=== PATIENT | male | born 1970 | race Caucasian/White ===

== ENCOUNTER 2017-04-23 20:53 | Emergency (ER) | payer BC, SELFPAY ==
[2017-04-23 20:54] VITALS: BP 136/83; PULSE 66; RESP 18; TEMP 36.6; O2SAT 99; BMI 24.0
--- NOTE | 2017-04-23 21:05 | XR_ITS ---
XR chest 2V HISTORY: ITS.REASON: chest pain ORDERING PHYSICIAN: Jose Guadalupe Coronado MD PATIENT AGE: 47 years COMPARISON: None available FINDINGS: The cardiomediastinal silhouette and pulmonary vascularity are within normal limits. The lungs are clear without infiltrates, suspicious nodules, or pleural effusions. No acute bony abnormalities. IMPRESSION: Negative chest, no acute finding
--- NOTE | 2017-04-23 21:07 | [facility].EDCP ---
ED Disposition Clinical Impression: Chest pain Qualifiers: Chest pain type: unspecified Qualified Code(s): R07.9 - Chest pain, unspecified Disposition: Home, Self-Care Condition on Discharge: Good Instructions: DI for Atypical Chest Pain Additional Instructions: call pcp for follow up and recheck if any problems - Critical Care Critical Care Time: No Attestation: On , the high probability of a clinically significant, sudden or life threatening deterioration of the following system(s) required my full and direct attention, intervention and personal management. The time I documented below is in addition to time spent performing reported procedures but includes the following listed in this critical care notation. Medical Decision Making - Medical Records Medical records reviewed: Yes: I reviewed the patient's medical records. Vital Signs: 04/23/17 20:54 Temperature 97.8 F Temperature Source Oral Pulse Rate [Left Radial] 66 Respiratory Rate 18 Blood Pressure [Right Arm] 136/83 Blood Pressure Mean [Right Arm] 100 Blood Pressure Source [Right Arm] Automatic Cuff Blood Pressure Position [Right Arm] Sitting 02 Sat by Pulse Oximetry 99 Oxygen Delivery Method Room Air - Lab Data Lab results reviewed: Yes: I reviewed the patient's lab results. Lab Results 04/23/17 21:00: WBC 9.6, RBC 4.62, Hgb 14.5, Hct 44.5, MCV 96.5 H, MCH 31.5 H, MCHC 32.6, RDW 13.0, Plt Count 236, MPV 7.9, Neut % (Auto) 62.9, Lymph % (Auto) 28.0, Blount % (Auto) 5.3, Eos % (Auto) 3.1, Baso % (Auto) 0.7, Neut # (Auto) 6.1, Lymph # (Auto) 2.7, Blount # (Auto) 0.5, Eos # (Auto) 0.3, Baso # (Auto) 0.1 04/23/17 21:00: Sodium 141, Potassium 3.9, Chloride 105, Carbon Dioxide 29, Anion Gap 10.9, BUN 13, Creatinine 1.06, Estimated Creat Clear 77, Estimated GFR 75, Est GFR ( Amer) 90, Glucose 81, Calcium 8.9, Total Bilirubin 0.3, AST 10 L, ALT 28, Alkaline Phosphatase 95, Total Creatine Kinase 59, CK-MB (CK-2) 0.5, CK-MB (CK-2) Rel Index 0.8, Troponin I < 0.02, Total Protein 6.7, Albumin 3.8, Globulin 2.9, Albumin/Globulin Ratio 1.3 Result diagrams: 04/23/17 21:00 04/23/17 21:00 Orders (Tests/Meds): ED MEDICATIONS Discontinued Medications Generic Name Dose Route Start Last Admin Trade Name Poly PRN Reason Stop Dose Admin Aspirin 324 mg 04/23/17 21:06 04/23/17 21:10 Aspirin 81mg Enteric Coated Tablet PO 04/23/17 21:07 324 mg ONCE ONE Administration Famotidine 20 mg 04/23/17 21:09 04/23/17 21:13 Pepcid 20mg/2ml Vial IV 04/23/17 21:10 20 mg ONCE ONE Administration Metoclopramide HCl 10 mg 04/23/17 21:09 04/23/17 21:13 Reglan 10mg/2ml Vial IVP 04/23/17 21:10 10 mg ONCE ONE Administration ORDERS Category Date Time Status XR chest 2V Stat Exams 04/23/17 21:05 Taken - Radiology Data #1 Image(s): Chest Image Reviewed: Yes I reviewed the patient's radiology image Preliminary Findings: Normal/NAD - ECG Data Tracing #1 I reviewed this ECG and interpreted as documented below: Ischemic changes: non-specific ST-T wave changes - Luis Eduardo Inquiry Pt receiving controlled substance: No Chest Pain HPI - General Chief Complaint: Chest Pain Stated Complaint: CHEST PAIN Time Seen by Provider: 04/23/17 21:07 Mode of Arrival: Ambulatory Source of Information: Patient, Spouse, Medical Record Limitations: No Limitations Description of Symptoms (Recalled from ER Triage Doc. by RN): Pt. reports substernal chest pain and says it feels like his chest is caving in. - History of Present Illness HPI narrative: pt with acute epigastic to mis line chest pain and rad to back - started tonight - no known ht dis and occ gerd MD complaint: chest pain Onset (ago): day(s) Duration: now resolved Severity: moderate Quality: other (burning ) Pain radiation: back Relieving factors: nothing Exacerbating factors: nothing Risk Factors for CAD: Family Hx of CAD, Smoking - VIKTOR Score Non-Stemi Age o
--- NOTE | 2017-04-23 21:10 | ED_ITS ---
ED Disposition Clinical Impression: Chest pain Qualifiers: Chest pain type: unspecified Qualified Code(s): R07.9 - Chest pain, unspecified Disposition: Home, Self-Care Condition on Discharge: Good Instructions: DI for Atypical Chest Pain Additional Instructions: call pcp for follow up and recheck if any problems - Critical Care Critical Care Time: No Attestation: On , the high probability of a clinically significant, sudden or life threatening deterioration of the following system(s) required my full and direct attention, intervention and personal management. The time I documented below is in addition to time spent performing reported procedures but includes the following listed in this critical care notation. Medical Decision Making - Medical Records Medical records reviewed: Yes: I reviewed the patient's medical records. Vital Signs: 04/23/17 20:54 Temperature 97.8 F Temperature Source Oral Pulse Rate [Left Radial] 66 Respiratory Rate 18 Blood Pressure [Right Arm] 136/83 Blood Pressure Mean [Right Arm] 100 Blood Pressure Source [Right Arm] Automatic Cuff Blood Pressure Position [Right Arm] Sitting 02 Sat by Pulse Oximetry 99 Oxygen Delivery Method Room Air - Lab Data Lab results reviewed: Yes: I reviewed the patient's lab results. Lab Results 04/23/17 21:00: WBC 9.6, RBC 4.62, Hgb 14.5, Hct 44.5, MCV 96.5 H, MCH 31.5 H, MCHC 32.6, RDW 13.0, Plt Count 236, MPV 7.9, Neut % (Auto) 62.9, Lymph % (Auto) 28.0, Davison % (Auto) 5.3, Eos % (Auto) 3.1, Baso % (Auto) 0.7, Neut # (Auto) 6.1 , Lymph # (Auto) 2.7, Davison # (Auto) 0.5, Eos # (Auto) 0.3, Baso # (Auto) 0.1 04/23/17 21:00: Sodium 141, Potassium 3.9, Chloride 105, Carbon Dioxide 29, Anion Gap 10.9, BUN 13, Creatinine 1.06, Estimated Creat Clear 77, Estimated GFR 75, Est GFR ( Amer) 90, Glucose 81, Calcium 8.9, Total Bilirubin 0.3 , AST 10 L, ALT 28, Alkaline Phosphatase 95, Total Creatine Kinase 59, CK-MB (CK -2) 0.5, CK-MB (CK-2) Rel Index 0.8, Troponin I < 0.02, Total Protein 6.7, Albumin 3.8, Globulin 2.9, Albumin/Globulin Ratio 1.3 Result diagrams: 04/23/17 21:00 04/23/17 21:00 Orders (Tests/Meds): ED MEDICATIONS Discontinued Medications Generic Name Dose Route Start Last Admin Trade Name Poly PRN Reason Stop Dose Admin Aspirin 324 mg 04/23/17 21:06 04/23/17 21:10 Aspirin 81mg Enteric Coated Tablet PO 04/23/17 21:07 324 mg ONCE ONE Administration Famotidine 20 mg 04/23/17 21:09 04/23/17 21:13 Pepcid 20mg/2ml Vial IV 04/23/17 21:10 20 mg ONCE ONE Administration Metoclopramide HCl 10 mg 04/23/17 21:09 04/23/17 21:13 Reglan 10mg/2ml Vial IVP 04/23/17 21:10 10 mg ONCE ONE Administration ORDERS Category Date Time Status XR chest 2V Stat Exams 04/23/17 21:05 Taken - Radiology Data #1 Image(s): Chest Image Reviewed: Yes I reviewed the patient's radiology image Preliminary Findings: Normal/NAD - ECG Data Tracing #1 I reviewed this ECG and interpreted as documented below: Ischemic changes: non-specific ST-T wave changes - Luis Eduardo Inquiry Pt receiving controlled substance: No Chest Pain HPI - General Chief Complaint: Chest Pain Stated Complaint: CHEST PAIN Time Seen by Provider: 04/23/17 21:07 Mode of Arrival: Ambulatory Source of
[2017-04-23 21:19] LABS: Basophils # 0.1 K/mm3 (0-0.2); Basophils % 0.7 % (0.1-2.0); Eosinophils # 0.3 K/mm3 (0.0-0.4); Eosinophils % 3.1 % (0.1-12.0); Hematocrit 44.5 % (42.0-52.0); Hemoglobin 14.5 g/dL (14.1-18.0); Lymphocytes # 2.7 K/mm3 (0.7-4.5); Mean Corpuscular HGB Conc 32.6 g/dL (31.8-35.4); Mean Corpuscular Hemoglobin 31.5 pg (27.0-31.2); Mean Corpuscular Volume 96.5 fl (80-94); Mean Platelet Volume 7.9 fl (7.4-10.4); Monocytes # 0.5 K/mm3 (0.1-1.0); Monocytes % 5.3 % (1.7-9.3); Neutrophils # 6.1 K/mm3 (1.8-7.8); Neutrophils % 62.9 % (37.0-80.0); Platelet Count 236 K/mm3 (142-424); Red Blood Count 4.62 M/mm3 (4.60-6.20); White Blood Count 9.6 K/mm3 (4.8-10.8)
[2017-04-23 21:39] LABS: Alanine Aminotransferase 28 U/L (12-78); Albumin Level 3.8 gm/dL (3.4-5.0); Anion Gap 10.9 mEq/L (5-15); Aspartate Amino Transferase 10 U/L (15-37); Bilirubin,Total 0.3 mg/dL (0.2-1.0); Blood Urea Nitrogen 13 mg/dL (7-18); CKMB Relative Index 0.8 U/L (0-4.0); Calcium 8.9 mg/dL (8.5-10.1); Carbon Dioxide 29 mmol/L (21.0-32.0); Chloride 105 mmol/L (98-107); Creatine Kinase 59 U/L (39-308); Creatine Kinase MB 0.5 mg/ml (0.0-3.6); Creatinine Clearance Estimated 77 mL/min (0-300); Creatinine,Serum 1.06 mg/dL (0.70-1.30); Estimated Glomerular Filt Rate 75 ml/min (>60); GFR (African American) 90 ML/MIN (>60); Glucose 81 mg/dL (74-106); Potassium 3.9 mmoL/L (3.5-5.1); Sodium 141 mmol/L (136-145); Total Protein,Serum 6.7 gm/dL (6.4-8.2); Troponin I < 0.02 ng/ml (0.00-0.06)
[2017-04-23 21:40] LABS: Albumin/Globulin Ratio 1.3 (1.1-1.8); Alkaline Phosphatase 95 U/L (46-116); Globulin 2.9 gm/dl (1.3-3.2)
[2017-04-23 22:27] VITALS: BP 127/84; PULSE 73; RESP 18; TEMP 37.1; O2SAT 99
== END 2017-04-23 22:27 | disposition home or self-care (01) ==
PROVIDERS: Emergency Provider Emergency Medicine; Family Provider Family Medicine
DX: R07.9 Chest pain, unspecified (principal); F17.210 Nicotine dependence, cigarettes, uncomplicated
CPT/HCPCS: 71046; 80053; 82550; 82553; 84484; 85025; 93005; 93041; 96374; 96375; 99282; 99283